=== PATIENT | female | born 1985 | race American Indian/Alaskan Native ===

== ENCOUNTER 2021-09-17 06:54 | Emergency (ER) | payer SELFPAY ==
[2021-09-17 07:18] VITALS: BP 114/75
[2021-09-17] MEDS ORDERED: SODIUM CHLORIDE 0.9% 1000 ML 1,000 ML IV ONE (10:10)
--- NOTE | 2021-09-17 10:37 | Emergency Department Report ---
ED Syncope HPI - General Chief Complaint: Medical Clearance Stated Complaint: BLACKED OUT - History of Present Illness Initial Comments: 35-year-old female presents to the ED complaining of a headache, foul odor, and near syncope episode. Patient states that she had she went out of town 4 days ago to [place]. He stated since she came back in town she has been having headache . Patient states that a.m. that she was picking her baby bottle when the patient stated that her she had a syncope episode. Patient states that she just cannot recall feeling very lightheadedness and not eating this is am due to the mild odorous taste she has in her mouth. Patient denies any medical history. Patient is alert and oriented x3. No acute distress noted. No ill appearance noted Timing/Prior Episodes: no prior history Precipitating Factors: Positive: none - Related Data Allergies/Adverse Reactions: Allergies egg Allergy (Verified 09/17/21 07:14) Hives milk Allergy (Verified 09/17/21 07:14) Hives Penicillins Allergy (Verified 09/17/21 07:14) Hives ED Review of Systems ROS: Stated complaint: BLACKED OUT Other details as noted in HPI Constitutional: denies: chills, fever Eyes: denies: eye pain, eye discharge, vision change ENT: denies: ear pain, throat pain Respiratory: denies: cough, shortness of breath, wheezing Cardiovascular: denies: chest pain, palpitations Endocrine: no symptoms reported Gastrointestinal: denies: abdominal pain, nausea, diarrhea Genitourinary: denies: urgency, dysuria, discharge Musculoskeletal: denies: back pain, joint swelling, arthralgia Skin: denies: rash, lesions Neurological: denies: headache, weakness, paresthesias Psychiatric: denies: anxiety, depression Hematological/Lymphatic: denies: easy bleeding, easy bruising ED Past Medical Hx - Past Medical History Previous Medical History?: No - Surgical History Past Surgical History?: Yes Hx Cholecystectomy: Yes ED Physical Exam - General Limitations: No Limitations General appearance: alert, in no apparent distress - Head Head exam: Present: atraumatic, normocephalic - Eye Eye exam: Present: normal appearance - ENT ENT exam: Present: mucous membranes moist - Neck Neck exam: Present: normal inspection - Respiratory Respiratory exam: Present: normal lung sounds bilaterally. Absent: respiratory distress - Cardiovascular Cardiovascular Exam: Present: regular rate, normal rhythm. Absent: systolic murmur, diastolic murmur, rubs, gallop - GI/Abdominal GI/Abdominal exam: Present: soft, normal bowel sounds - Extremities Exam Extremities exam: Present: normal inspection - Back Exam Back exam: Present: normal inspection - Neurological Exam Neurological exam: Present: alert, oriented X3 - Psychiatric Psychiatric exam: Present: normal affect, normal mood - Skin Skin exam: Present: warm, dry, intact, normal color. Absent: rash ED Course Vital Signs 09/17/21 09/17/21 07:17 10:23 Temperature 98 F Pulse Rate 84 Respiratory 20 Rate Blood Pressure 114/75 [Right] O2 Sat by Pulse 96 98 Oximetry ED Medical Decision Making - Lab Data Result diagrams: 09/17/21 10:25 09/17/21 10:25 - EKG Data EKG shows normal: sinus rhythm Rate: normal - EKG Data Interpretation: normal EKG - Medical Decision Making 35-year-old female presents to the ED complaining of a headache, foul odor, and near syncope episode. Patient states that she had she went out of town 4 days ago to [place]. He stated since she came back in [facility] she has been having headache . Patient states that a.m. that she was picking her baby bottle when the patient stated that her she had a syncope episode. Patient states that she just cannot recall feeling very lightheadedness and not eating this is am due to the mild odorous taste she has in her mouth. Patient denies any medical history. Patient is alert and oriented x3. No acute distress noted. No ill appearance noted. Patient AMA prior to lab results. SHe stated that she had to go respiratory supervisor her baby Critical care attestation.: If time is entered above; I have spent that time in minutes in the direct care of this critically ill patient, excluding procedure time. ED Disposition Clinical Impression: Syncope Qualifiers: Syncope type: unspecified Qualified Code(s): R55 - Syncope and collapse Disposition: LEFT AGAINST MEDICAL ADVICE Is pt being admited?: No Does the pt Need Aspirin: No Condition: Stable Instructions: Syncope (ED) Referrals: TROY KELLEY MD [Primary Care Provider] - 3-5 Days
[2021-09-17 10:59] LABS: Hematocrit 42.9 % (30.3-42.9); Hemoglobin 14.3 gm/dl (10.1-14.3); Mean Corpuscular HGB Conc 33 % (30-34); Mean Corpuscular Volume 90 fl (79-97); Platelet Count 210 K/mm3 (140-440); Red Blood Count 4.79 M/mm3 (3.65-5.03); Red Cell Distribution Width 13.9 % (13.2-15.2)
[2021-09-17 11:14] LABS: Creatine Kinase MB 1.2 ng/mL (0.0-4.0)
[2021-09-17 11:16] LABS: Alanine Aminotransferase 24 units/L (7-56); Albumin 4.2 g/dL (3.9-5); Blood Urea Nitrogen 7 mg/dL (7-17); Hemolysis Index 21
[2021-09-17 11:17] LABS: BUN/Creatinine Ratio 10
--- NOTE | 2021-09-18 13:19 | Electrocardiograph Report ---
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
== END 2021-09-17 11:07 | disposition left against medical advice (07) ==
LOC: ED 06:54
DX: R55 Syncope and collapse (principal); Z90.49 Acquired absence of other specified parts of digestive tract
CPT/HCPCS: 36415; 80053; 82550; 82553; 84484; 84702; 85027; 93005; 96360; 99283; J7030

== ENCOUNTER 2021-10-23 08:03 | Emergency (ER) | payer OTHER ==
[2021-10-23 09:43] VITALS: BP 118/74
--- NOTE | 2021-10-23 10:11 | Emergency Department Report ---
Chief Complaint: Skin/Abscess/Foreign Body Stated Complaint: INSECT BITE - HPI History of Present Illness: 35-year-old female no significant past medical history reports to the ER after having insect bite to her left inner thigh close to the genital area. Patient reports swelling with tenderness noted. 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 Patient alert and orient x4 Nonlabored breathing Patient is able to walk with no assistance. MSE screening note: Focused history and physical exam performed. Due to findings the following was ordered: MSE complete. Orders to be placed. Patient to be seen by another provider in the back. Triage complete. ED Disposition for MSE Condition: Stable
[2021-10-23] MEDS ORDERED: LIDOCAINE (2%) 20 MG/1 ML VIAL 20 ML MDV INFILTRATI ONE (11:01)
--- NOTE | 2021-10-23 12:00 | Emergency Department Report ---
Abscess Boil HPI - HPI Chief Complaint: Skin/Abscess/Foreign Body Stated Complaint: INSECT BITE Time Seen by Provider: 10/23/21 10:15 Duration: 1 Day Location: Other (left inner thigh) History: Yes Pain, No Fever, No Purulent Drainage, No Numbness, No Foreign Body, No Previous History, No Insect Bite HPI: This is a 35-year-old female nontoxic, well nourished in appearance, no acute signs of distress presents to the ED with c/o of redness and pain with some swelling to the left proximal inner thigh that started yesterday. Patient stated she believes she was bit by something but is not sure. Patient denies any pus or drainage. Patient denies any fever, chills, nausea, vomiting, chest pain, shortness of breath, headache or stiff neck. Patient stated allergies to penicillin. Home Medications: Previous Rx's Medication Instructions Recorded Last Taken Type Naproxen 500 mg PO Q12H PRN #12 tab 10/23/21 Unknown Rx Sulfamethoxazole/Trimethoprim 1 each PO BID #14 tab 10/23/21 Unknown Rx [Bactrim DS TAB] Allergies/Adverse Reactions: Allergies Allergy/AdvReac Type Severity Reaction Status Date / Time amoxicillin Allergy Hives Verified 10/23/21 08:25 egg Allergy Hives Verified 09/17/21 07:14 milk Allergy Hives Verified 09/17/21 07:14 Penicillins Allergy Hives Verified 09/17/21 07:14 ED Review of Systems ROS: Stated complaint: INSECT BITE Other details as noted in HPI Comment: All other systems reviewed and negative Constitutional: denies: chills, fever Eyes: denies: eye pain, eye discharge, vision change ENT: denies: ear pain, throat pain Respiratory: denies: cough, shortness of breath, wheezing Cardiovascular: denies: chest pain, palpitations Endocrine: no symptoms reported Gastrointestinal: denies: abdominal pain, nausea, diarrhea Genitourinary: denies: urgency, dysuria, discharge Musculoskeletal: denies: back pain, joint swelling, arthralgia Skin: denies: rash, lesions Neurological: denies: headache, weakness, paresthesias Psychiatric: denies: anxiety, depression Hematological/Lymphatic: denies: easy bleeding, easy bruising ED Past Medical Hx - Surgical History Hx Cholecystectomy: Yes - Social History Smoking Status: Current Every Day Smoker Substance Use Type: None - Medications Home Medications: Home Medications Medication Instructions Recorded Confirmed Last Taken Type Naproxen 500 mg PO Q12H PRN #12 tab 10/23/21 Unknown Rx Sulfamethoxazole/Trimethoprim 1 each PO BID #14 tab 10/23/21 Unknown Rx [Bactrim DS TAB] ED Abscess Boil Physical Exam - Exam General: Vital signs noted. No distress. Alert and acting appropriately. Front/Back of Body, Lg (Color): 1 - Abscess present here Size: 3 cm Exam: Yes Tenderness, Yes Fluctuance, Yes Normal Neurologic Exam, Yes Normal Circulation, No Surrounding Cellulites/Erythema, No Lymphangitis, No Crepitation, No Heart Murmur I & D Note - I & D Note I & D Note: Under sterile field, I used Betadine to cleanse the area. I then used 2% lidocaine plain with 25-gauge 5/8 needle to inject area for anesthetic purposes. Total volume injected 3 mL. I then used an 11 blade to make a 1 cm incision. About 2 mL's of purulent drainage has been noted. I then used a hemostat to break the abscess formation. I then used sterile 0.9% normal saline flush to flush the wound with total volume of 40 mL used. I then put a 1/4 iodoform packing to the incision. A sterile 4 x 4 with tape has been applied as dressing. Bleeding is under control. Patient tolerated the procedure well with no signs of distress noted. ED Course Vital Signs 10/23/21 10/23/21 08:20 09:38 Temperature 98.5 F 98.3 F Pulse Rate 96 H 78 Respiratory 18 16 Rate Blood Pressure 118/74 Blood Pressure 121/78 [Left] O2 Sat by Pulse 100 100 Oximetry - Reevaluation(s) Reevaluation #1: 10/23/21 11:58 Patient is speaking in full sentences with no signs of distress noted. Critical care attestation.: If time is entered above; I have spent that time in minutes in the direct care of this critically ill patient, excluding procedure time. ED Medical Decision Making - Medical Decision Making This is a 35-year-old female that presents with abscess. Patient is stable and was examined by me. This is incision and drainage and has been performed and patient tolerated well. A sterile dressing has been applied. Patient was educated on proper wound care. Patient is discharged with Bactrim. Patient was instructed to return in 2 days for packing removal. Patient was instructed to refer to Follow-up with a primary care doctor in 3-5 days or if symptoms worsen and continue return to emergency room as soon as possible. At time of discharge, the patient does not seem toxic or ill in appearance. No acute signs of distress noted. Patient agrees to discharge treatment plan of care. No further questions noted by the patient. ED Disposition Clinical Impression: Abscess, Encounter for incision and drainage procedure Disposition: HOME / SELF CARE / HOMELESS Is pt being admited?: No Does the pt Need Aspirin: No Condition: Stable Instructions: Skin Abscess, Incision and Drainage Additional Instructions: Follow-up with a primary care doctor in 3-5 days or if symptoms worsen and continue return to emergency room as soon as possible. Return in 2 days for packing removal and reassessment of the site. Prescriptions: Sulfamethoxazole/Trimethoprim [Bactrim DS TAB] 1 each PO BID #14 tab Naproxen 500 mg PO Q12H PRN #12 tab PRN Reason: Pain , Severe (7-10) Referrals: TROY KELLEY MD [Primary Care Provider] - 3-5 Days PRIMARY CAREMD [Referring] - 3-5 Days KALPANA FARRAR MD [Staff Physician] - 3-5 Days Forms: Work/School Release Form(ED) Time of Disposition: 12:00
== END 2021-10-23 13:06 | disposition home or self-care (01) ==
LOC: ED 08:03
DX: L02.415 Cutaneous abscess of right lower limb (principal); F17.200 Nicotine dependence, unspecified, uncomplicated; Z90.49 Acquired absence of other specified parts of digestive tract; Z79.899 Other long term (current) drug therapy; Z88.1 Allergy status to other antibiotic agents; Z88.0 Allergy status to penicillin; Z91.011 Allergy to milk products; Z91.012 Allergy to eggs
CPT/HCPCS: 10060; 99282; J3490